=== PATIENT | male | born 1965 | race Caucasian/White ===

== ENCOUNTER 2019-05-05 18:17 | Emergency (ER) | payer OTHER ==
[~2019-05-05] VITALS: Ht 182.9 cm; Wt 127.0 kg
[2019-05-05] MEDS ORDERED: OXYCONTIN20 M1 PO (18:44)
[2019-05-05] MEDS ORDERED: COZAAR 25 MG TA25 M1 PO (18:45)
[2019-05-05 19:57] LABS: ABSOLUTE NEUTROPHILS 7.8 thou/uL (1.4-8.2); BASOPHILS 0.5 % (0.0-2.0); EOSINOPHILS 0.9 % (0.0-3.0); HEMATOCRIT 45.9 % (42.0-52.0); HEMOGLOBIN 15.5 gm/dL (14.0-18.0); LYMPHOCYTES 19.4 % (24.0-44.0); MCH 30.2 pg (26.0-34.0); MCHC 33.8 g/dL (28.0-37.0); MCV 89.3 fL (80.0-100.0); MONOCYTES 7.1 % (1.0-8.0); PLATELET COUNT 265 thou/uL (150-400); POLYS 72.1 % (36.0-66.0); RBC 5.14 mil/uL (4.50-6.00); RDW 13.6 % (10.5-14.5); WBC 10.8 thou/uL (4.0-11.0)
[2019-05-05 20:01] LABS: ANION GAP 10 mmol/L (7-16); BUN 15 mg/dL (7-18); CALCIUM 9.1 mg/dL (8.5-10.1); CHLORIDE 100 mmol/L (98-107); CO2 30 mmol/L (21-32); CREATININE 0.9 mg/dL (0.7-1.3); GLUCOSE 136 mg/dL (74-106); POTASSIUM 3.8 mmol/L (3.5-5.1); SODIUM 140 mmol/L (136-145)
[2019-05-05 20:06] LABS: ALBUMIN 4.2 g/dL (3.4-5.0); DIRECT BILIRUBIN < 0.1 mg/dL (<0.1-0.3); LIPASE 766 U/L (73-393); SGOT 68 U/L (15-37); SGPT 61 U/L (30-65); TOTAL BILIRUBIN 0.4 mg/dL (<0.1-1.0); TOTAL PROTEIN 7.9 g/dL (6.4-8.2)
[2019-05-05 23:13] VITALS: BP 181/101
--- NOTE | 2019-05-08 09:03 | EKG ---
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: : 1965 Requested By: Gifty Ruiz Order Number: [id number] MD: Adonis Romero Measurements Intervals [place] Rate: 76 P: 18 ME: 176 QRS: -5 QRSD: 93 T: 12 QT: 371 QTc: 418 Interpretive Statements Sinus rhythm Poor R-wave progression No previous ECG available for comparison Electronically Signed On 05-08-2019 9:03:02 CDT by Adonis Romero [email or web address] ��������������������������������������������� <ELECTRONICALLY SIGNED> ���������������������������������������� By: Adonis Romero MD, [facility] ��������������������������������������������� 05/08/19 0903 [id number] 99 Adonis Romero MD, FACC /EPI
== END 2019-05-05 23:13 | disposition short-term general hospital (02) ==
LOC: ER 18:17
PROVIDERS: Emergency Medicine
DX: K66.8 Other specified disorders of peritoneum (principal)